=== PATIENT | female | born 1955 | race African-American/Black ===

== ENCOUNTER 2022-04-05 08:39 | Inpatient (IN) | payer OTHER ==
[~2022-04-05] VITALS: Ht 157.5 cm; Wt 170.0 kg
[2022-04-05] MEDS ORDERED: MAGNESIUM 2 G PREMIX 50 ML IV STA (08:48)
[2022-04-05] MEDS ORDERED: IPRATROPIUM BROMIDE (0.02%) 0.5MG/2.5ML NEB HHN STA (08:48)
[2022-04-05] MEDS ORDERED: ALBUTEROL (0.083%) 2.5MG/3ML NEB HHN STA (08:48)
[2022-04-05] MEDS ORDERED: METHYLPREDNISOLONE SOD SUCC 125 MG/2 ML VIAL IV STA (08:48)
[2022-04-05 09:10] LABS: BASOPHILS % 0.7 % (0.0-2.0); EOSINOPHILS % 2.1 % (0.0-5.0); HEMATOCRIT. 27.3 % (36.0-48.0); HEMOGLOBIN. 8.9 g/dL (12.0-16.0); LYMPHOCYTES % 20.7 % (20.0-50.0); MEAN CORPUSCULAR HEMOGLOBIN 29.8 pg (28.0-32.0); MEAN CORPUSCULAR VOLUME 90.9 fL (81.0-99.0); MEAN PLATELET VOLUME 8.3 fl (7.4-10.4); MONOCYTES % 12.4 % (2.0-8.0); NEUTROPHILS % 64.1 % (40.0-76.0); PLATELET 224 x1000/uL (130-400)
[2022-04-05 09:20] LABS: PROTHROMBIN TIME 10.5 sec (9.6-11.0)
[2022-04-05 09:31] LABS: CHLORIDE 124 mEq/L (98-107)
[2022-04-05 09:36] LABS: CLARITY URINE CLOUDY (CLEAR); COLOR URINE YELLOW (YELLOW); KETONES URINE TRACE (NEGATIVE); LEUKOCYTE ESTERASE URINE 1+ (NEGATIVE); NITRITE URINE NEGATIVE (NEGATIVE); OCCULT BLOOD URINE NEGATIVE (NEGATIVE); PROTEIN URINE 2+ (NEGATIVE); SPECIFIC GRAVITY URINE 1.019 (1.005-1.030)
[2022-04-05] MEDS ORDERED: LEVOFLOXACIN 500MG PREMIX 100 ML IV ONE (09:45)
[2022-04-05 10:46] LABS: BG BASE EXCESS -8.4 mmol/L (-2.0-2.0); BG CARBOXYHEMOGLOBIN 0.3 % (0.5-1.5); BG FRACTION INSPIRED OXYGEN 40; BG HCO3 ACT 18.3 mmol/L (22.0-26.0); BG METHEMOGLOBIN 0.3 % (0.0-1.5); BG OXYGEN SATURATION 78.9 % (92.0-98.5); BG OXYHEMOGLOBIN 78.4 % (94.0-97.0); BG PCO2 42.3 mmHg (35.0-45.0); BG PH 7.253 (7.350-7.450); BG PO2 46.5 mmHg (75.0-100.0); BG SAMPLE SITE LEFT RADIAL; BG TOTAL HEMOGLOBIN 9.5 g/dL (12.0-18.0); BG VENT MODE MASK - BIPAP
[2022-04-05] MEDS ORDERED: ONDANSETRON HCL 4MG/2ML INJ IV PRN (12:30)
[2022-04-05] MEDS ORDERED: ACETAMINOPHEN 325MG TABLET PO PRN (12:30)
[2022-04-05] MEDS ORDERED: DEXTROSE 50% WATER 50ML SYRINGE IV PRN (12:30)
[2022-04-05] MEDS ORDERED: NALOXONE HCL 0.4MG/ML VIAL IV PRN (12:30)
[2022-04-05] MEDS: BLOOD SUGAR DIAGNOSTIC STRIP TEST SCH ×3 (14:38→21:40)
[2022-04-05] MEDS: INSULIN LISPRO 100 UNITS/ML SUBCUT SCH ×3 (14:39→21:59)
[2022-04-05] MEDS: TRAMADOL 50MG TABLET PO PRN ×2 (14:49→21:59)
[2022-04-05] MEDS: IPRATROPIUM/ALBUTEROL 0.5-3(2.5)MG/3ML NEB HHN SCH (18:22)
[2022-04-06] MEDS: IPRATROPIUM/ALBUTEROL 0.5-3(2.5)MG/3ML NEB HHN SCH ×3 (03:27→13:43)
[2022-04-06] MEDS: TRAMADOL 50MG TABLET PO PRN ×2 (04:10→13:04)
[2022-04-06] MEDS: BLOOD SUGAR DIAGNOSTIC STRIP TEST SCH ×2 (06:47→11:40)
[2022-04-06] MEDS: INSULIN LISPRO 100 UNITS/ML SUBCUT SCH ×2 (06:51→12:00)
[2022-04-06] MEDS ORDERED: LEVOFLOXACIN 500MG PREMIX 100 ML IV SCH (11:00)
[2022-04-06 13:04] VITALS: BP 150/61
[2022-04-06] MEDS ORDERED: LEVO-65 MT (14:51)
== END 2022-04-06 18:15 | disposition home or self-care (01) | DRG 133 ==
LOC: ER 08:39 → EDBEDREQ 10:15 → EDBEDREQTM 10:15 → MICUSO 04-06 00:03
PROVIDERS: ADMIT Internal Medicine; ATTEND Internal Medicine
PROC: 5A09357 Assistance with Respiratory Ventilation, Less than 24 Consecutive Hours, Continuous Positive Airway Pressure (ICD-10-PCS; principal; 2022-04-05)
DX: J96.00 Acute respiratory failure, unspecified whether with hypoxia or hypercapnia (principal); N17.0 Acute kidney failure with tubular necrosis; E44.0 Moderate protein-calorie malnutrition; J18.9 Pneumonia, unspecified organism; E87.1 Hypo-osmolality and hyponatremia; Z68.44 Body mass index [BMI] 60.0-69.9, adult; E11.9 Type 2 diabetes mellitus without complications; D64.9 Anemia, unspecified; J45.909 Unspecified asthma, uncomplicated; I10 Essential (primary) hypertension; Z20.822 Contact with and (suspected) exposure to COVID-19; E87.5 Hyperkalemia; E78.00 Pure hypercholesterolemia, unspecified; E78.5 Hyperlipidemia, unspecified; Z88.0 Allergy status to penicillin; Z82.49 Family history of ischemic heart disease and other diseases of the circulatory system
CPT/HCPCS: 36415; 36600; 71045; 80053; 81003; 82375; 82805; 82962; 83605; 83880; 84145; 84484; 85025; 87426; 93005; 94640; 94660; 99291; C9803; J1815; J1956; J2930; J3475

== ENCOUNTER 2022-04-07 19:18 | Inpatient (IN) | payer OTHER ==
[~2022-04-07] VITALS: Ht 160 cm; Wt 132.5 kg
[~2022-04-07 19:18] MED LIST: LEVO-65 MT
[2022-04-08 00:14] LABS: EOSINOPHILS % 1.8 % (0.0-5.0); HEMATOCRIT. 27.7 % (36.0-48.0); HEMOGLOBIN. 9.1 g/dL (12.0-16.0); LYMPHOCYTES % 16.1 % (20.0-50.0); MEAN CORPUSCULAR HEMOGLOBIN 29.8 pg (28.0-32.0); MEAN CORPUSCULAR VOLUME 90.5 fL (81.0-99.0); MEAN PLATELET VOLUME 9.1 fl (7.4-10.4); MONOCYTES % 8.6 % (2.0-8.0); NEUTROPHILS % 72.5 % (40.0-76.0); PLATELET 235 x1000/uL (130-400); RED BLOOD CELL COUNT 3.06 mill/uL (4.2-5.4); RED CELL DISTRIBUTION WIDTH 15.2 % (11.6-14.6)
[2022-04-08] MEDS ORDERED: IPRATROPIUM/ALBUTEROL 0.5-3(2.5)MG/3ML NEB HHN ONE (00:15)
[2022-04-08 00:21] LABS: CHLORIDE 116 mEq/L (98-107)
[2022-04-08 00:23] LABS: PROTHROMBIN TIME 10.5 sec (9.6-11.0)
[2022-04-08] MEDS ORDERED: LEVOFLOXACIN 750MG PREMIX 150 ML IV ONE (00:45)
[2022-04-08] MEDS ORDERED: INSULIN REGULAR (HUMULIN R) 300UNITS/3ML VIAL IV ONE (02:45)
[2022-04-08] MEDS ORDERED: CALCIUM GLUCONATE 100MG/ML 10ML VIAL IV ONE (02:45)
[2022-04-08] MEDS ORDERED: DEXTROSE 50% WATER 50ML SYRINGE IV ONE (02:45)
[2022-04-08 19:04] VITALS: BP 168/71
[2022-04-08 20:00] VITALS: BP 184/94
[2022-04-08 20:10] VITALS: BP 173/120
[2022-04-08 20:12] VITALS: BP 184/94
[2022-04-08] MEDS ORDERED: DEXTROSE 50% WATER 50ML SYRINGE IV PRN (20:45)
[2022-04-08] MEDS ORDERED: IPRATROPIUM/ALBUTEROL 0.5-3(2.5)MG/3ML NEB HHN PRN (20:45)
[2022-04-08] MEDS ORDERED: ACETAMINOPHEN 325MG TABLET PO PRN (21:00)
[2022-04-08] MEDS ORDERED: DOCUSATE SODIUM 250MG CAPSULE PO PRN (21:00)
[2022-04-08] MEDS: INSULIN LISPRO 100 UNITS/ML SUBCUT SCH (21:00)
[2022-04-08] MEDS: BLOOD SUGAR DIAGNOSTIC STRIP TEST SCH (21:00)
[2022-04-08] MEDS: BUDESONIDE 0.5MG/2ML NEB HHN SCH (21:29)
[2022-04-08] MEDS: IPRATROPIUM/ALBUTEROL 0.5-3(2.5)MG/3ML NEB HHN SCH (21:29)
[2022-04-08 21:37] LABS: BASOPHILS % 0.4 % (0.0-2.0); HEMATOCRIT. 27.1 % (36.0-48.0); HEMOGLOBIN. 8.7 g/dL (12.0-16.0); LYMPHOCYTES % 15.9 % (20.0-50.0); MEAN CORPUSCULAR HEMOGLOBIN 29.7 pg (28.0-32.0); MEAN CORPUSCULAR VOLUME 92.5 fL (81.0-99.0); MONOCYTES % 10.1 % (2.0-8.0); NEUTROPHILS % 71.6 % (40.0-76.0); PLATELET 219 x1000/uL (130-400); RED BLOOD CELL COUNT 2.93 mill/uL (4.2-5.4); RED CELL DISTRIBUTION WIDTH 15.6 % (11.6-14.6)
[2022-04-08 22:12] VITALS: BP 165/92
[2022-04-08] MEDS: METHYLPREDNISOLONE SOD SUCC 40 MG/ML VIAL IV SCH (22:20)
[2022-04-08] MEDS: ATORVASTATIN CALCIUM 40MG TABLET PO SCH (22:21)
[2022-04-08] MEDS: GABAPENTIN 300MG CAPSULE PO SCH (22:21)
[2022-04-08] MEDS: AMLODIPINE 10MG TABLET PO SCH (22:21)
[2022-04-08] MEDS: ENOXAPARIN 40MG/0.4ML SYR SUBCUT SCH (22:22)
[2022-04-08] MEDS ORDERED: AZITHROMYCIN 500 MG in DEXT 5% WATER 250 ML IV SCH (23:00)
[2022-04-08] MEDS ORDERED: SODIUM POLYSTYRENE SULFONATE 15 G/60 ML BOT PO NR (23:30)
[2022-04-09] MEDS: IPRATROPIUM/ALBUTEROL 0.5-3(2.5)MG/3ML NEB HHN SCH ×7 (00:51→21:32)
[2022-04-09 01:51] VITALS: BP 167/88
[2022-04-09] MEDS: METHYLPREDNISOLONE SOD SUCC 40 MG/ML VIAL IV SCH ×3 (04:33→21:26)
[2022-04-09 04:36] VITALS: BP 169/83
[2022-04-09] MEDS: GABAPENTIN 300MG CAPSULE PO SCH ×3 (05:43→21:42)
[2022-04-09] MEDS: BLOOD SUGAR DIAGNOSTIC STRIP TEST SCH ×4 (06:56→21:25)
[2022-04-09] MEDS: INSULIN LISPRO 100 UNITS/ML SUBCUT SCH ×4 (07:20→21:41)
[2022-04-09 08:00] VITALS: BP 174/86
[2022-04-09] MEDS ORDERED: SODIUM BICARBONATE 8.4% 1 MEQ/ML 50ML SYR IV NR (08:33)
[2022-04-09] MEDS ORDERED: DEXTROSE 50% WATER 50ML SYRINGE IV NR (08:35)
[2022-04-09] MEDS ORDERED: SODIUM POLYSTYRENE SULFONATE 15 G/60 ML BOT PO NR (08:45)
[2022-04-09] MEDS ORDERED: INSULIN REGULAR (HUMULIN R) 300UNITS/3ML VIAL IV NR (08:45)
[2022-04-09] MEDS: FUROSEMIDE 40MG/4ML VIAL IVP SCH ×2 (09:00→11:49)
[2022-04-09] MEDS ORDERED: DOCU250C69 PO (09:19)
[2022-04-09] MEDS ORDERED: ATOR40TA70 PO (09:19)
[2022-04-09] MEDS ORDERED: BENA40TA91 PO (09:20)
[2022-04-09] MEDS ORDERED: GABA-533 PO (09:21)
[2022-04-09] MEDS ORDERED: METF-416 PO (09:22)
[2022-04-09] MEDS ORDERED: FLUT15.844 BOTHNSTRLS (09:25)
[2022-04-09] MEDS ORDERED: ACET-2708 PO (09:26)
[2022-04-09] MEDS ORDERED: TAMS-11 PO (09:27)
[2022-04-09] MEDS ORDERED: AMLO10TA80 PO (09:28)
[2022-04-09] MEDS ORDERED: ALBUTEROL INH INH (09:30)
[2022-04-09] MEDS ORDERED: CALCIUM GLUCONATE 100MG/ML 10ML VIAL IV NR (10:00)
[2022-04-09] MEDS ORDERED: LEVOFLOXACIN 500MG PREMIX 100 ML IV SCH (11:00)
[2022-04-09] MEDS: AMLODIPINE 10MG TABLET PO SCH (11:48)
[2022-04-09] MEDS: TAMSULOSIN HCL 0.4MG SR CAPSULE PO SCH (11:49)
[2022-04-09 12:00] VITALS: BP 135/68
[2022-04-09] MEDS ORDERED: SODIUM POLYSTYRENE SULFONATE 15 G/60 ML BOT PO SCH (15:00)
[2022-04-09 16:00] VITALS: BP 122/54
[2022-04-09] MEDS ORDERED: FUROSEMIDE 40MG/4ML VIAL IVP NR (18:00)
[2022-04-09 20:14] VITALS: BP 155/67
[2022-04-09] MEDS: BUDESONIDE 0.5MG/2ML NEB HHN SCH (21:30)
[2022-04-09] MEDS: ENOXAPARIN 40MG/0.4ML SYR SUBCUT SCH (21:42)
[2022-04-09] MEDS: FLUTICASONE PROPIONATE 50MCG/SPRAY BOTTLE BOTHNSTRLS SCH (21:42)
[2022-04-09] MEDS: ATORVASTATIN CALCIUM 40MG TABLET PO SCH (21:42)
[2022-04-10 00:20] VITALS: BP 141/76
[2022-04-10] MEDS: IPRATROPIUM/ALBUTEROL 0.5-3(2.5)MG/3ML NEB HHN SCH ×5 (00:37→16:57)
[2022-04-10 04:34] VITALS: BP 144/70
[2022-04-10] MEDS: METHYLPREDNISOLONE SOD SUCC 40 MG/ML VIAL IV SCH (05:29)
[2022-04-10] MEDS: GABAPENTIN 300MG CAPSULE PO SCH ×2 (05:41→13:03)
[2022-04-10] MEDS: BLOOD SUGAR DIAGNOSTIC STRIP TEST SCH ×3 (05:48→17:09)
[2022-04-10 08:00] VITALS: BP 146/73
[2022-04-10] MEDS: BUDESONIDE 0.5MG/2ML NEB HHN SCH (09:01)
[2022-04-10] MEDS: FUROSEMIDE 40MG/4ML VIAL IVP SCH (09:25)
[2022-04-10] MEDS: FLUTICASONE PROPIONATE 50MCG/SPRAY BOTTLE BOTHNSTRLS SCH (09:25)
[2022-04-10] MEDS: AMLODIPINE 10MG TABLET PO SCH (09:25)
[2022-04-10] MEDS: TAMSULOSIN HCL 0.4MG SR CAPSULE PO SCH (09:25)
[2022-04-10] MEDS: INSULIN LISPRO 100 UNITS/ML SUBCUT SCH ×3 (09:33→16:54)
[2022-04-10] MEDS ORDERED: LEVOFLOXACIN 250MG PREMIX 50 ML IV SCH (11:00)
[2022-04-10] MEDS ORDERED: INSULIN GLARGINE 100 UNITS/ML SUBCUT SCH ×2 (12:00→22:00)
[2022-04-10] MEDS ORDERED: METHYLPREDNISOLONE SOD SUCC 40 MG/ML VIAL IV SCH (14:00)
[2022-04-10] MEDS ORDERED: FURO-151 MT (17:15)
[2022-04-10] MEDS ORDERED: INSULIN LISPRO 100 UNITS/ML SUBCUT NR (17:15)
[2022-04-10 18:38] VITALS: BP 147/65
[2022-04-11] MEDS ORDERED: PREDNISONE 20MG TABLET PO SCH (07:20)
== END 2022-04-10 18:56 | disposition home or self-care (01) | DRG 139 ==
LOC: ER 19:18 → MICUSO 04-08 02:01 → EDBEDREQ 04-08 02:06 → 3WST 04-08 18:50
PROVIDERS: ADMIT Internal Medicine; ATTEND Internal Medicine
DX: J18.9 Pneumonia, unspecified organism (principal); J96.01 Acute respiratory failure with hypoxia; N17.0 Acute kidney failure with tubular necrosis; I50.43 Acute on chronic combined systolic (congestive) and diastolic (congestive) heart failure; J45.901 Unspecified asthma with (acute) exacerbation; E87.20 Acidosis, unspecified; Z68.43 Body mass index [BMI] 50.0-59.9, adult; I13.0 Hypertensive heart and chronic kidney disease with heart failure and stage 1 through stage 4 chronic kidney disease, or unspecified chronic kidney disease; E11.22 Type 2 diabetes mellitus with diabetic chronic kidney disease; E66.01 Morbid (severe) obesity due to excess calories; E11.42 Type 2 diabetes mellitus with diabetic polyneuropathy; E11.65 Type 2 diabetes mellitus with hyperglycemia; D64.9 Anemia, unspecified; E87.5 Hyperkalemia; E78.00 Pure hypercholesterolemia, unspecified; N18.31 Chronic kidney disease, stage 3a; T38.0X5A Adverse effect of glucocorticoids and synthetic analogues, initial encounter; Z20.822 Contact with and (suspected) exposure to COVID-19; E78.5 Hyperlipidemia, unspecified; Z88.0 Allergy status to penicillin; Z82.49 Family history of ischemic heart disease and other diseases of the circulatory system; Z87.891 Personal history of nicotine dependence; Y92.89 Other specified places as the place of occurrence of the external cause
CPT/HCPCS: 36415; 71045; 80048; 80053; 80061; 82962; 83036; 83605; 84132; 84145; 85025; 87426; 93005; 94640; 99285; J0456; J0610; J1650; J1815; J1940; J1956; J2920; J3490; J7060; J7626

== ENCOUNTER 2024-07-05 11:34 | Emergency (ER) | payer OTHER ==
[~2024-07-05] VITALS: Ht 160 cm; Wt 108.0 kg
[~2024-07-05 11:34] MED LIST changes: +ACET-2708 PO; +ALBUTEROL INH INH; +AMLO10TA80 PO; +ATOR40TA70 PO; +BENA40TA91 PO; +DOCU-405 PO; +FLUT15.844 BOTHNSTRLS; +FURO-151 MT; +GABA-534 PO; +METF-416 PO; +TAMS-11 PO
[2024-07-05 11:36] VITALS: O2SAT 99
[2024-07-05] MEDS: MORPHINE SULFATE 4 MG/ML INJ (FOR IV/IM USE) IV STA (12:20)
[2024-07-05] MEDS: KETOROLAC 30MG/ML VIAL IV STA (12:21)
[2024-07-05 12:29] VITALS: BP 137/55; PULSE 79; RESP 16; TEMP 36.9; O2SAT 99
[2024-07-05 12:34] LABS: BASOPHILS % 0.6 % (0.0-2.0); EOSINOPHILS % 1.2 % (0.0-5.0); LYMPHOCYTES % 24.8 % (20.0-50.0); MEAN CORPUSCULAR HGB CONC 32.2 g/dL (31.0-37.0); MEAN CORPUSCULAR VOLUME 83.8 fL (81.0-99.0); MEAN PLATELET VOLUME 7.9 fl (7.4-10.4); MONOCYTES % 9.9 % (2.0-8.0); NEUTROPHILS % 63.5 % (40.0-76.0); PLATELET 258 x1000/uL (130-400); RED BLOOD CELL COUNT 3.34 mill/uL (4.2-5.4); RED CELL DISTRIBUTION WIDTH 15.2 % (11.6-14.6); WHITE BLOOD COUNT 5.5 x1000/uL (4.5-11.0)
[2024-07-05 12:51] LABS: CHLORIDE 112 mEq/L (98-107); POTASSIUM 5.6 mEq/L (3.5-5.1); SODIUM 142 mEq/L (136-145)
[2024-07-05 12:52] LABS: CARBON DIOXIDE 23 mEq/L (21-32)
[2024-07-05 12:53] LABS: CALCIUM 8.9 mg/dL (8.7-10.4)
[2024-07-05 12:57] LABS: CREATININE 1.1 mg/dL (0.6-1.0); GLUCOSE 117 mg/dL (70-105)
[2024-07-05 12:58] LABS: UREA NITROGEN BLOOD 31 mg/dL (9-23)
[2024-07-05 13:00] LABS: TROPONIN I HIGH SENSITIVITY 4 ng/L (3.0-34)
[2024-07-05] MEDS ORDERED: VANCOMYCIN 1000MG/250ML 250 ML IV SCH (13:45)
[2024-07-05] MEDS: VANCOMYCIN 1G PREMIX 200 ML IV SCH (14:26)
== END 2024-07-05 17:08 | disposition short-term general hospital (02) ==
LOC: ER 11:34 → EDBEDREQTM 13:47 → EDBEDREQ 13:47 → EDBEDREQSVC 13:47 → ER 17:08
DX: S81.801A Unspecified open wound, right lower leg, initial encounter (principal); S81.802A Unspecified open wound, left lower leg, initial encounter; E78.00 Pure hypercholesterolemia, unspecified; E11.9 Type 2 diabetes mellitus without complications; I10 Essential (primary) hypertension; J45.909 Unspecified asthma, uncomplicated; Z79.84 Long term (current) use of oral hypoglycemic drugs; Z79.899 Other long term (current) drug therapy; Z88.0 Allergy status to penicillin; X58.XXXA Exposure to other specified factors, initial encounter; Y93.89 Activity, other specified; Y92.89 Other specified places as the place of occurrence of the external cause; Y99.8 Other external cause status
CPT/HCPCS: 80048; 85025; 84484; 36415; 73502; 96365; 96375; 99285; J1885; J3370; J2270; Z7610; 96361; 96374